=== PATIENT | male | born 1960 | race Two or more races ===

== ENCOUNTER 2017-04-22 20:50 | Emergency (ER) | payer OTHER ==
[~2017-04-22] VITALS: Ht 185.4 cm; Wt 125.0 kg
[2017-04-22 20:51] VITALS: BP 179/111
[2017-04-22] MEDS ORDERED: HYDROcodone/APAP 5/325 TABLET ONE (21:14)
[2017-04-22] MEDS ORDERED: HYDROcodone/APAP 5/325 TABLET PO ONE (21:30)
== END 2017-04-22 22:17 | disposition home or self-care (01) ==
LOC: ED 21:53
DX: S83.91XA Sprain of unspecified site of right knee, initial encounter (principal); M10.9 Gout, unspecified; X50.1XXA Overexertion from prolonged static or awkward postures, initial encounter; Y93.89 Activity, other specified; Y99.8 Other external cause status; Y92.89 Other specified places as the place of occurrence of the external cause
CPT/HCPCS: 29505; 99284

== ENCOUNTER → 2017-05-21 | Outpatient (CLI) | payer OTHER | END | disposition home or self-care (01) | LOC: CFH 10:22 | PROVIDERS: ATTEND Physician Assistant | DX: M23.221 Derangement of posterior horn of medial meniscus due to old tear or injury, right knee (principal); M17.11 Unilateral primary osteoarthritis, right knee; M25.461 Effusion, right knee ==